=== PATIENT | male | born 1990 | race Caucasian/White ===

== ENCOUNTER 2017-10-15 01:56 | Emergency (ER) | payer MEDICAID, OTHER ==
[~2017-10-15] VITALS: Ht 182.9 cm; Wt 73.0 kg
[2017-10-15 02:02] VITALS: BP 140/92; PULSE 145; RESP 18; TEMP 98.1; O2SAT 97
--- NOTE | 2017-10-15 02:31 | PD ---
HPI Chief Complaint: OD/ Ingestion Time Seen by Provider: 02:26 Travel History International Travel<30 days: No Contact w/Intl Traveler<30days: No Traveled to known affect area: No History of Present Illness HPI 27-year-old white male presents to the department under Januarymission act by PD. The patient was found by a family member passed out unconscious in the bathroom on the toilet after injecting IV drugs. The patient was brought in for evaluation. The patient here denies any suicidal homicidal ideation. He states that he had injected 30 mg of oxycodone. Patient states that he has a history of substance abuse as well as bipolar disorder. He is off his medications. He medicates with IV substances. Patient denies any suicidal homicidal ideation. He denies any medical complaints. PFSH Past Medical History Bipolar Disorder: Yes Anxiety: Yes Depression: Yes Cancer: No Cardiovascular Problems: No Cerebrovascular Accident: No Diabetes: No Diminished Hearing: No Endocrine: No Genitourinary: No Headaches: Yes Immune Disorder: No Psychiatric: Yes (bipolar, no meds; panic attacks) Reproductive: No Respiratory: No Thyroid Disease: No Tetanus Vaccination: < 5 Years Influenza Vaccination: No Past Surgical History Body Medical Devices: BULGING DISC Pacemaker: No Other Surgery: Yes (JAWLINE SURGERY ) Social History Alcohol Use: Yes Tobacco Use: No Substance Use: Yes (marijuana, OXYCODONE) Allergies-Medications (Allergen,Severity, Reaction): Coded Allergies: No Known Allergies (Verified Adverse Reaction, Unknown, 10/15/17) Reported Meds & Prescriptions Reported Meds & Active Scripts Active No Active Prescriptions or Reported Medications Review of Systems General / Constitutional: No: Fever Eyes: No: Visual changes HENT: No: Headaches Cardiovascular: No: Chest Pain or Discomfort Respiratory: No: Shortness of Breath Gastrointestinal: No: Abdominal Pain Genitourinary: No: Dysuria Musculoskeletal: Positive: Pain (chronic back pain) Skin: No Rash Neurologic: No: Weakness Psychiatric: Positive: Depression, Substance Abuse, No: Anxiety, Suicidal Ideations, Disorder of Thought, Mood Disorder, Homicidal Ideation Endocrine: No: Polydipsia Hematologic/Lymphatic: No: Easy Bruising Physical Exam Narrative GENERAL: Well-nourished, well-developed patient. SKIN: Warm and dry. HEAD: Normocephalic and atraumatic. EYES: No scleral icterus. No injection or drainage. ENT: No nasal drainage noted. Mucous membranes pink. Airway patent. NECK: Supple, trachea midline. Moves head freely without obvious discomfort. CARDIOVASCULAR: Regular rate and rhythm without murmurs, gallops, or rubs. RESPIRATORY: Breath sounds equal bilaterally. No accessory muscle use. GASTROINTESTINAL: Abdomen soft, non-tender, nondistended. EXTREMITIES: No cyanosis or edema. BACK: Nontender without obvious deformity. No CVA tenderness. NEURO: Patient is alert and oriented. no sensorimotor deficits. Nonfocal. Normal speech. PSYCH: No delusions. No auditory or visual hallucinations. Data Data Last Documented VS Vital Signs Date Time Temp Pulse Resp B/P (MAP) Pulse Ox O2 Delivery O2 Flow Rate FiO2 10/15/17 02:49 97 16 140/90 (107) 100 Room Air 10/15/17 02:02 98.1 MDM Medical Decision Making Medical Screen Exam Complete: Yes Emergency Medical Condition: Yes Medical Record Reviewed: Yes Differential Diagnosis Differential diagnoses: Alcohol intoxication, substance abuse, electrolyte abnormality, malingering Narrative Course The patient here is alert and oriented 4. He admits to injecting oxycodone this evening. The patient states that he has no intention of hurting himself or hurting anyone. He merely was injecting IV drugs and passed out. Patient's repeat vital signs here in the ER are normal now. He has a pulse of 97. Vital signs are stable. There is no indication for any evaluations at this time. IV substance abuse Diagnosis Primary Impression: IV substance abuse Patient Instructions: General Instructions Additional Instructions: Rest. Increase fluids. Avoid alcohol. Avoid illegal substances. Follow-up with [facility] for detox. Do not operate a car or any heavy machinery under the influence of alcohol or drugs. Follow-up with a medical doctor this week. Return to the ER for emergencies Med/Other Pt SpecificInfo: No Meds Exist/No RX given Scripts No Active Prescriptions or Reported Meds Disposition: 01 DISCHARGE HOME Condition: Stable Albin Traore Oct 15, 2017 02:31
[2017-10-15 02:49] VITALS: BP 140/90; PULSE 97; RESP 16; O2SAT 100
== END 2017-10-15 02:45 | disposition home or self-care (01) ==
LOC: NEPD 01:56
DX: F19.10 Other psychoactive substance abuse, uncomplicated (principal); Z86.59 Personal history of other mental and behavioral disorders; Z87.39 Personal history of other diseases of the musculoskeletal system and connective tissue
CPT/HCPCS: 99281